=== PATIENT | male | born 1980 | race Caucasian/White ===

== ENCOUNTER 2020-02-10 10:06 | Emergency (ER) | payer OTHER ==
[~2020-02-10] VITALS: Ht 180.3 cm; Wt 90.7 kg
[~2020-02-10 10:06] MED LIST: ACETAMINOPHEN-1 EAC1 PO; EAR DROPS15 ML OT; IBUPROFEN 600600 M1; NAPROSYN500 MG PO; ZOLOFT50 MG PO; ZPAK PO
[2020-02-10 10:33] LABS: URINE BILIRUBIN NEGATIVE (Negative); URINE BLOOD NEGATIVE (Negative); URINE CLARITY CLEAR; URINE COLOR YELLOW; URINE GLUCOSE-RANDOM* NEGATIVE (Negative); URINE KETONES NEGATIVE (Negative); URINE LEUKOCYTES-REFLEX NEGATIVE (Negative); URINE NITRITE-REFLEX NEGATIVE (Negative); URINE PROTEIN (DIPSTICK) NEGATIVE (Negative); URINE SPECIFIC GRAVITY 1.025 (1.005-1.035); URINE UROBILINOGEN 0.2 E.U./dl (0.2-1.0)
[2020-02-10] MEDS ORDERED: DOXYCYCLINE 10100 MG PO (12:14)
[2020-02-10 12:31] VITALS: BP 121/77
== END 2020-02-10 12:32 | disposition home or self-care (01) ==
LOC: ER 10:06
PROVIDERS: Emergency Medicine
DX: N50.812 Left testicular pain (principal); N50.811 Right testicular pain; F17.210 Nicotine dependence, cigarettes, uncomplicated

== ENCOUNTER → 2020-06-05 | Emergency (ER) | payer OTHER ==
[~2020-06-05] VITALS: Ht 177.8 cm; Wt 104.3 kg
[~2020-06-05] MED LIST changes: +ACTONEL 5 MG5 M1 PO; +DOXYCYCLINE 10100 MG PO; +RISPERDAL 1 MG T1 MG PO; +SERTRALINE HCL100 MG PO; +ZOLOFT100 MG PO
[2020-06-05 16:33] VITALS: BP 126/85
== END ==
LOC: ER 16:29
DX: F32.9 Major depressive disorder, single episode, unspecified (principal); F17.210 Nicotine dependence, cigarettes, uncomplicated; Z76.0 Encounter for issue of repeat prescription; Z79.899 Other long term (current) drug therapy